=== PATIENT | male | born 1985 | race American Indian/Alaskan Native ===

== ENCOUNTER 2018-03-31 14:38 | Emergency (ER) | payer SELFPAY ==
[2018-03-31] MEDS ORDERED: ZOFRAN IV ONE (14:58)
[2018-03-31] MEDS ORDERED: NACL 0.9% 1000 ML 1,000 ML IV ONE (14:58)
[2018-03-31] MEDS ORDERED: MORPHINE IV ONE (14:58)
[2018-03-31 15:29] LABS: Basophils # (Auto) 0.1 K/mm3 (0.0-0.1); Basophils % (Auto) 0.6 % (0.0-1.8); Eosinophils # (Auto) 0.1 K/mm3 (0.0-0.4); Eosinophils % (Auto) 1.2 % (0.0-4.3); Hematocrit 46.9 % (35.5-45.6); Hemoglobin 15.7 gm/dl (11.8-15.2); Lymphocytes # (Auto) 0.9 K/mm3 (1.2-5.4); Lymphocytes % (Auto) 8.1 % (13.4-35.0); Mean Corpuscular HGB Conc 34 % (32-34); Mean Corpuscular Volume 93 fl (84-94); Monocytes # (Auto) 0.4 K/mm3 (0.0-0.8); Platelet Count 196 K/mm3 (140-440); Red Blood Count 5.06 M/mm3 (3.65-5.03); Red Cell Distribution Width 13.5 % (13.2-15.2)
[2018-03-31 15:43] LABS: Alanine Aminotransferase 15 units/L (7-56); Albumin 4.4 g/dL (3.9-5); BUN/Creatinine Ratio 9; Blood Urea Nitrogen 7 mg/dL (9-20); Calcium 9.1 mg/dL (8.4-10.2); Hemolysis Index 33
--- NOTE | 2018-03-31 17:54 | Emergency Department Report ---
ED Abdominal Pain HPI - General Chief Complaint: Nausea/Vomiting/Diarrhea Stated Complaint: VOMITING BLOOD/FROM EATING PORK Time Seen by Provider: 03/31/18 14:57 Source: patient Mode of arrival: Ambulatory Limitations: No Limitations - History of Present Illness Initial Comments: Mr. Whiting is a very pleasant 33 year old male who presents wtih nausea v omiting diarrhea. Has stomachache and headache. His girlfriend has similar symptoms. Girlfriend suspects that the pork sausage caused food poisoning. Mr. Whiting requires a work note to return to work. Mild frontal headache. Denies any abdominal pain at this time. Hx of HIV since 2011, takes Atripla, normal CD4 count, undetectable viral load, followed at [facility] MD Complaint: abdominal pain -: Gradual Radiation: none Severity scale (0 -10): 4 Quality: cramping Consistency: intermittent Improves With: nothing Worsens With: nothing Context: possible food poisoning, sick contacts Associated Symptoms: nausea, vomiting, diarrhea - Related Data Previous Rx's Medication Instructions Recorded Last Taken Type Promethazine [Phenergan TAB] 25 mg PO Q6HR PRN #10 tab 03/31/18 Unknown Rx Allergies Allergy/AdvReac Type Severity Reaction Status Date / Time peanut Allergy Angioedema Verified 02/06/15 12:40 ED Review of Systems ROS: Stated complaint: VOMITING BLOOD/FROM EATING PORK Other details as noted in HPI Comment: All other systems reviewed and negative Constitutional: malaise. denies: fever Cardiovascular: denies: chest pain Gastrointestinal: abdominal pain, nausea, vomiting, diarrhea Neurological: headache ED Past Medical Hx - Past Medical History Previous Medical History?: Yes Hx HIV: Yes - Surgical History Past Surgical History?: No - Social History Smoking Status: Never Smoker Substance Use Type: None - Medications Home Medications: Home Medications Medication Instructions Recorded Confirmed Last Taken Type Promethazine [Phenergan TAB] 25 mg PO Q6HR PRN #10 tab 03/31/18 Unknown Rx ED Physical Exam - General Limitations: No Limitations General appearance: alert, in no apparent distress - Head Head exam: Present: atraumatic, normocephalic - Eye Eye exam: Present: normal appearance - ENT ENT exam: Present: mucous membranes moist - Neck Neck exam: Present: normal inspection. Absent: tenderness, meningismus - Respiratory Respiratory exam: Present: normal lung sounds bilaterally. Absent: respiratory distress, wheezes, rales, rhonchi - Cardiovascular Cardiovascular Exam: Present: regular rate, normal rhythm, normal heart sounds. Absent: systolic murmur, diastolic murmur, rubs, gallop - GI/Abdominal GI/Abdominal exam: Present: soft, normal bowel sounds. Absent: distended, tenderness, guarding, rebound - Rectal Rectal exam: Present: deferred - Extremities Exam Extremities exam: Present: normal inspection - Back Exam Back exam: Present: normal inspection - Neurological Exam Neurological exam: Present: alert, oriented X3 - Psychiatric Psychiatric exam: Present: normal affect, normal mood - Skin Skin exam: Present: warm, dry, intact, normal color. Absent: rash ED Course Vital Signs 03/31/18 14:47 Temperature 98.3 F Pulse Rate 104 H Respiratory 16 Rate Blood Pressure 114/74 O2 Sat by Pulse 100 Oximetry ED Medical Decision Making - Lab Data Result diagrams: 03/31/18 15:06 03/31/18 15:06 Laboratory Results - last 24 hr 03/31/18 03/31/18 15:06 15:06 WBC 11.1 H RBC 5.06 H Hgb 15.7 H Hct 46.9 H MCV 93 MCH 31 MCHC 34 RDW 13.5 Plt Count 196 Lymph % (Auto) 8.1 L [place] % (Auto) 4.0 Eos % (Auto) 1.2 Baso % (Auto) 0.6 Lymph # 0.9 L [place] # 0.4 Eos # 0.1 Baso # 0.1 Seg Neutrophils % 86.1 H Seg Neutrophils # 9.6 H Sodium 140 Potassium 3.9 Chloride 102.8 Carbon Dioxide 28 Anion Gap 13 BUN 7 L Creatinine 0.8 Estimated GFR > 60 BUN/Creatinine Ratio 9 Glucose 89 Calcium 9.1 Total Bilirubin 0.40 AST 20 ALT 15 Alkaline Phosphatase 79 Total Protein 7.8 Albumin 4.4 Albumin/Globulin Ratio 1.3 Lipase 32 - Medical Decision Making Mr. Whiting presents with abdominal discomfort and vomiting diarrhea. Girlfriend km has similar symptoms. He does not have any abdominal pain or peritonitis to indicate acute severe intra-abdominal process such as acute appendicitis. I reexamined his abdomen prior to discharge, no tenderness. Mildly elevated white blood count noted. Patient understands return precautions. Prescribed promethazine. Critical care attestation.: If time is entered above; I have spent that time in minutes in the direct care of this critically ill patient, excluding procedure time. ED Disposition Clinical Impression: Food poisoning Disposition: DC-01 TO HOME OR SELFCARE Is pt being admited?: No Does the pt Need Aspirin: No Condition: Stable Instructions: Food Poisoning (ED) Prescriptions: Promethazine [Phenergan TAB] 25 mg PO Q6HR PRN #10 tab PRN Reason: Nausea Referrals: [facility] [Outside] - as needed Forms: Work/School Release Form(ED)
[2018-04-02 12:21] VITALS: BP 118/71
== END 2018-03-31 18:25 | disposition home or self-care (01) ==
LOC: ED 14:38
DX: T62.91XA Toxic effect of unspecified noxious substance eaten as food, accidental (unintentional), initial encounter (principal); Y92.89 Other specified places as the place of occurrence of the external cause
CPT/HCPCS: 36415; 80053; 83690; 85025; 96361; 96374; 96375; 99283; J2270; J2405; J7030

== ENCOUNTER 2019-08-26 12:44 | Emergency (ER) | payer SELFPAY ==
[2019-08-26 12:55] VITALS: BP 118/70
--- NOTE | 2019-08-26 13:14 | Emergency Department Report ---
Blank Doc - Documentation Documentation: 34-year-old male that presents with left foot and ankle pain s/p fall. exam: tenderness with some swelling noted to ankle area. This initial assessment/diagnostic orders/clinical plan/treatment(s) is/are subject to change based on patient's health status, clinical progression and re- assessment by fellow clinical providers in the ED. Further treatment and workup at subsequent clinical providers discretion. Patient/guardians urged not to elope from the ED as their condition may be serious if not clinically assessed and managed. Initial orders include: 1- Patient sent to [facility] for further evaluation and treatment 2- xrays
[2019-08-26] MEDS ORDERED: IBUPROFEN 800 MG TAB PO ONE (13:54)
--- NOTE | 2019-08-26 13:58 | XRay Report ---
LEFT ANKLE, 3 VIEWS INDICATION / CLINICAL INFORMATION: Left foot pain, fall. COMPARISON: None available. FINDINGS: No fracture or dislocation. No significant soft tissue abnormality. IMPRESSION: No fracture or dislocation involving the ankle. LEFT FOOT, 3 VIEWS INDICATION / CLINICAL INFORMATION: Patient fell, foot pain . COMPARISON: None available. FINDINGS: No fracture dislocation. No significant soft tissue abnormality. IMPRESSION: Negative exam. Signer Name: Nataly Sheppard MD Signed: 08/26/2019 1:54 PM Workstation Name: [id number]
--- NOTE | 2019-08-26 16:23 | Emergency Department Report ---
ED Lower Extremity HPI - General Chief Complaint: Extremity Injury, Lower Stated Complaint: FELL DOWN STAIRS TWISTED LEFT LEG Time Seen by Provider: 08/26/19 13:11 Source: patient Mode of arrival: Wheelchair Limitations: No Limitations - History of Present Illness Initial Comments: This is a 34-year-old male who presents the ED today complaining of left ankle pain that began today shortly after he was stepping down some steps and excellently tripped while carrying car seat. Patient describes pain as throbbing in nature. Patient states pain is worsened with movement of the foot. MD Complaint: ankle injury, foot injury -: Sudden Injury: Ankle: Left (pain ) Type of Injury: other (tripped over steps) Place: home Severity: moderate Severity scale (0 -10): 5 Worsens With: movement Context: fall - Related Data Previous Rx's Medication Instructions Recorded Last Taken Type Promethazine [Phenergan] 25 mg PO Q6HR PRN #10 tab 03/31/18 Unknown Rx Cyclobenzaprine [Flexeril] 10 mg PO QHS PRN #10 tablet 08/26/19 Unknown Rx Ibuprofen [Motrin 800 MG tab] 800 mg PO Q8HR PRN #30 tablet 08/26/19 Unknown Rx Allergies Allergy/AdvReac Type Severity Reaction Status Date / Time peanut Allergy Angioedema Verified 08/26/19 12:49 ED Review of Systems ROS: Stated complaint: FELL DOWN STAIRS TWISTED LEFT LEG Other details as noted in HPI Comment: All other systems reviewed and negative ED Past Medical Hx - Past Medical History Previous Medical History?: No Hx HIV: Yes - Surgical History Past Surgical History?: No - Social History Smoking Status: Never Smoker Substance Use Type: None - Medications Home Medications: Home Medications Medication Instructions Recorded Confirmed Last Taken Type Promethazine [Phenergan] 25 mg PO Q6HR PRN #10 tab 03/31/18 Unknown Rx Cyclobenzaprine [Flexeril] 10 mg PO QHS PRN #10 tablet 08/26/19 Unknown Rx Ibuprofen [Motrin 800 MG tab] 800 mg PO Q8HR PRN #30 tablet 08/26/19 Unknown Rx ED Physical Exam - General Limitations: No Limitations General appearance: alert, in no apparent distress - Head Head exam: Present: atraumatic, normocephalic - Eye Eye exam: Present: normal appearance - ENT ENT exam: Present: mucous membranes moist - Neck Neck exam: Present: normal inspection - Respiratory Respiratory exam: Present: normal lung sounds bilaterally. Absent: respiratory distress - Cardiovascular Cardiovascular Exam: Present: regular rate, normal rhythm. Absent: systolic murmur, diastolic murmur, rubs, gallop - GI/Abdominal GI/Abdominal exam: Present: soft, normal bowel sounds - Rectal Rectal exam: Present: deferred - Extremities Exam Extremities exam: Present: normal inspection, full ROM, tenderness (To the palpation of the lateral ankle), normal capillary refill, other (No swelling noted, no deformity). Absent: pedal edema, joint swelling, calf tenderness - Back Exam Back exam: Present: normal inspection - Neurological Exam Neurological exam: Present: alert, oriented X3, normal gait - Psychiatric Psychiatric exam: Present: normal affect, normal mood - Skin Skin exam: Present: warm, dry, intact, normal color. Absent: rash ED Course Vital Signs 08/26/19 08/26/19 08/26/19 12:49 13:15 14:43 Temperature 100 F H 99.1 F Pulse Rate 130 H 124 H Respiratory 18 20 Rate Blood Pressure 118/70 O2 Sat by Pulse 97 Oximetry ED Lower Extremity MDM - Radiology Data Radiology results: report reviewed, image reviewed LEFT ANKLE, 3 VIEWS INDICATION / CLINICAL INFORMATION: Left foot pain, fall. COMPARISON: None available. FINDINGS: No fracture or dislocation. No significant soft tissue abnormality. IMPRESSION: No fracture or dislocation involving the ankle. LEFT FOOT, 3 VIEWS INDICATION / CLINICAL INFORMATION: Patient fell, foot pain . COMPARISON: None available. FINDINGS: No fracture dislocation. No significant soft tissue abnormality. IMPRESSION: Negative exam. Signer Name: Nataly Sheppard MD Signed: 08/26/2019 1:54 PM Workstation Name: [id number] Transcribed By: Dictated By: Nataly Sheppard MD Electronically Authenticated By: Nataly Sheppard MD Signed Date/Time: 08/26/19 7543 - Medical Decision Making 34-year-old female presents to ED with left ankle pain most likely secondary to strain from fall ED course: Patient received x-ray of the ankle and foot in ED. x-ray shows no acute findings see report above Discussed x-ray findings with the patient. Scottie wrap applied to left ankle prior to discharge Vital signs are normal patient is in no acute distress Discussed with patient follow-up with primary care physician. Discussed the patient and take medications as prescribed. Patient has no neurological deficit. Patient is alert and oriented 3 and understands all instructions given. Discussed drowsiness effect of Flexeril makes her drowsy and not to operate machinery while taking flexeril Critical care attestation.: If time is entered above; I have spent that time in minutes in the direct care of this critically ill patient, excluding procedure time. ED Disposition Clinical Impression: Left ankle sprain Disposition: - TO HOME OR SELFCARE Is pt being admited?: No Does the pt Need Aspirin: No Condition: Stable Instructions: Arthralgia (ED), Ankle Sprain (ED) Additional Instructions: Make sure to follow up with the primary care physician as discussed. Take all your medications as you've been prescribed. If you have any worsening symptoms or develop new symptoms please return to ED immediately. Referrals: PRIMARY CARE, [Primary Care Provider] - 3[facility]5 Days [facility] [Outside] - 3-5 Days [facility] [Outside] - 3-5 Days Forms: Work/School Release Form(ED) Time of Disposition: 16:27
== END 2019-08-26 17:06 | disposition home or self-care (01) ==
LOC: ED 12:44
DX: S93.402A Sprain of unspecified ligament of left ankle, initial encounter (principal); Z21 Asymptomatic human immunodeficiency virus [HIV] infection status; Z79.899 Other long term (current) drug therapy; Z91.010 Allergy to peanuts; X50.1XXA Overexertion from prolonged static or awkward postures, initial encounter; Y93.89 Activity, other specified; Y92.89 Other specified places as the place of occurrence of the external cause; Y99.8 Other external cause status